=== PATIENT | male | born 1975 | race Caucasian/White ===

== ENCOUNTER 2020-03-27 09:14 | Emergency (ER) | payer BC, SELFPAY ==
[2020-03-27] VITALS (27 sets, daily range): BP systolic 132–152; BP diastolic 73–93; PULSE 72–96; RESP 14–29; TEMP 37; O2SAT 97–100
--- NOTE | 2020-03-27 09:15 | RT.EKG_ITS ---
APPROVED REPORT Exam: Resting ECG Patient Location: E HR:84 bpm ECG Measurements Heart Rate 84 AXIS NJ 224 P -1 QRSd 93 QRS 44 QT 341 T 27 QTc 404 <Conclusion> Sinus rhythm...normal P axis, V-rate 60- 99 Prolonged NJ interval...NJ >210, V-rate 50- 90 1st degree I have reviewed and interpreted ECG and agree with software generated interpretation. No acute ischem ic changes. Non-diagnostic EKG.
--- NOTE | 2020-03-27 09:30 | DI.RAD_ITS ---
EXAM: XR CHEST 2V PA LATERAL CLINICAL HISTORY: back/chest pain TECHNIQUE: 2D digital imaging was performed. COMPARISON: CR LEFT SHOULDER COMPLETE from 10/26/2017 FINDINGS: MEDIASTINUM: Normal. HEART: Normal. PULMONARY VASCULATURE: Normal. LUNGS: Patchy infiltrate in the right upper lobe. The left lung appears clear. PLEURAL SPACE: No pleural effusion or pneumothorax. BONE:Normal. OTHER FINDINGS:Normal. IMPRESSION: Right upper lobe pneumonia. DATA REPOSITORY: RADIATION DOSE DELIVERED:
--- NOTE | 2020-03-27 09:47 | W.ED.GENAD ---
Discharge Plan Disposition Patient Disposition: HOME Condition: Stable Discharge Details Chief Complaint: GenMedical Clinical Impression: Pneumonia, Hyponatremia, Hypokalemia Primary Care Provider: Jose Juan Jackson ED Provider: Rk Aviles Home Meds and New Rx's Prescriptions: New doxycycline hyclate 100 mg capsule 100 mg PO BID Qty: 10 RF: 0 Continued diclofenac-misoprostol [Arthrotec 75] 75-200 mg-mcg tablet,IR,delayed rel,biphasic 1 tab PO DAILY Qty: 30 RF: 3 allopurinol 100 mg tablet 200 mg PO DAILY Qty: 180 RF: 6 indomethacin 50 mg capsule 50 mg PO TID Qty: 20 RF: 3 esomeprazole magnesium [Nexium] 40 mg capsule,delayed release(DR/EC) 40 mg PO DAILY Qty: 90 RF: 3 Discharge Instructions Instructions: Hyponatremia (ED), Hypokalemia (ED), Pneumonia (ED) Additional Instructions: Doxycycline as directed. Be sure to stay adequately hydrated. As we discussed your sodium was low today, I do recommend eating some salty foods today and tomorrow to be sure this level returns to a normal range. In the meantime I do recommend that you consider and try to quit smoking and drinking alcohol. Please watch for new or worsening symptoms and return to the ER for any concerns. Your tickborne disease and COVID testing is pending, we discussed quarantining. I strongly recommend reaching out to your primary care provider later today or tomorrow for prompt outpatient reevaluation. Stand Alone Forms: POSITIVE COVID-19/TO BE TESTED Discharge Data Discharge Date/Time-TO BE ENTERED AT DEPARTURE: 03/27/20 12:41 Medical Decision Making 44-year-old gentleman who reports regular alcohol consumption, nearly 12 beers daily, current smoker, history of gout presents to the ER with multiple concerns. He does admit that he believes he has an alcohol problem but does not want any help for that, declines detox. Symptoms have been present for at least 1 month and include fatigue, body aches, joint aches, global headache, concerned of dehydration. He does report upper chest and back pain that he associates to be muscular. Clinically he appears well, nontoxic in no acute distress. Last drink was Wednesday night. Certainly could be a component of withdrawal here. Given his fatigue, aches, I do believe obtaining routine laboratory values assessing for potential infection, anemia, tickborne disease, etc. this is certainly reasonable. Given his chronic alcohol consumption very well may have an electrolyte abnormality. Although I do not believe his story is highly concerning of cardiac etiology, given he does complain of upper back and chest discomfort I do believe obtaining EKG and troponin is reasonable. Given my low suspicion for cardiac etiology, will not initiate aspirin therapy. Given the duration of his symptoms I believe a single troponin is sufficient for cardiac rule out. Laboratory values reveal a white blood cell count of 7.75 hemoglobin 15.4 hematocrit 42.3 platelet count 177. Sodium 129 potassium 3.3 creatinine 1.31 with a GFR of 58.91. LFTs unremarkable. TSH 1.57. Urine reveals 5-10 red blood cells but no signs of infection. Initial troponin is less than 0.05. Alcohol less than 3. Drug screen negative. Patient had 1 L IV fluid for potential dehydration and mild hyponatremia. Given 40 p.o. potassium. Chest x-ray reveals right upper lobe pneumonia. Will use doxycycline for antibiotic therapy as this should cover pneumonia as well as possible tickborne disease. First dose given here in the ER. Diagnosis of pneumonia certainly could explain his symptoms however his white count is normal, he shows no signs of hypoxia, denies cough or fever. Will obtain COVID test. Upon reevaluation patient does subjectively report feeling improvement after the IV fluid. We discussed his laboratory values and his imaging in length. Patient is quite comfortable discharge at this time however he does understand that both his COVID test and his tickborne panel are pending. We discussed quarantining and he is comfortable doing so. We also discussed that he was given a 10-day dose of doxycycline to treat his pneumonia however if his tickborne panel returns positive he likely needs to extend his doxycycline therapy. He was encouraged to watch for new or worsening symptoms and return to the ER for any concerns, otherwise contact his primary care provider today or tomorrow for prompt outpatient reevaluation. Medical Records Medical records reviewed: Yes I reviewed the patient's medical records. Imaging Data Radiologic Study: Attestation: I personally reviewed and interpreted this imaging study as follows: Imaging: X-Ray My impression: Right upper lobe pneumonia, confirmed by radiology Lab Data Lab results reviewed: Yes I reviewed the patient's lab results. Lab results narrative: Laboratory Tests Range/Units 03/27/20 03/27/20 03/27/20 09:41 09:41 09:55 WBC (4.4-10.8) 10^3/uL RBC (4.36-5.78) 10^6/uL Hgb (13.5-17.5) g/dL Hct (40.0-50.0) % MCV (80-95) fL MCH (27.0-33.0) pg MCHC (32.0-36.0) % RDW (11.8-14.1) % Plt Count (130-400) 10^3/uL MPV (8.0-11.0) fL Immature Gran % Neutrophils % Lymphocytes % Monocytes % Eosinophils % Basophils % Absolute Neutrophils (1.2-6.7) 10^3/uL Absolute Lymphocytes (1.2-3.4) 10^3/uL Absolute Monocytes (0.1-0.8) 10^3/uL Absolute Eosinophils (0.0-0.7) 10^3/uL Absolute Basophils (0.0-0.2) 10^3/uL PT (9.3-11.0) sec INR (0.9-1.1) APTT (21.0-31.4) sec Sodium (136-145) mmol/L Potassium (3.5-5.1) mmol/L Chloride (98-107) mmol/L Carbon Dioxide (21.0-32.0) mmol/L Anion Gap (3-11) mmol/L BUN (7-18) mg/dL Creatinine (0.70-1.30) mg/dL Estimated GFR/1.73 m2 (mL/min/1.73m2) Glucose (74-106) mg/dL Calcium (8.5-10.1) mg/dL Magnesium (1.8-2.4) mg/dL Total Bilirubin (0.2-1.0) mg/dL AST (15-37) U/L ALT (16-63) U/L Alkaline Phosphatase (46-116) U/L Troponin I (<0.06) ng/mL Total Protein (6.4-8.2) g/dL Albumin (3.4-5.0) g/dL TSH (0.36-3.74) uIU/mL 1.57 Urine Color (Yellow) Yellow Urine Clarity (Clear) Clear Urine pH (5-8) 6.0 Ur Specific [place] (1.005-1.025) >= 1.030 H Urine Protein (Negative) mg/dL 100 H Urine Ketones (Negative) mg/dL Negative Urine Blood (Negative) Moderate H Urine Nitrite (Negative) Negative Urine Bilirubin (Negative) Small H Urine Urobilinogen (Up TO 0.2) EU/dL 2.0 H Ur Leukocyte Esterase (Negative) Negative Urine RBC (0-2) HPF 5-10 H Urine WBC (0-5) HPF 0-2 Ur Epithelial Cells (Negative) HPF Few Urine Crystals (Negative) HPF Moderate amorphous Urine Bacteria (Negative) HPF Negative Urine Casts (Negative) LPF Negative Urine Mucus (Negative) Moderate Ur Culture Indicated? No Urine Glucose (Negative) mg/dL Negative Urine Opiates Screen (Negative) Negative Urine Methadone Screen (Negative) Negative Ur Barbiturates Screen (Negative) Negative Ur Tricyclics Screen (Negative) Negative Ur Amphetamines Screen (Negative) Negative U Benzodiazepines Scrn (Negative) Negative Urine Cocaine Screen (Negative) Negative Ur THC Screen (Negative) Negative Ethyl Alcohol (<3) mg/dL < 3.0 COVID-19 PCR Nasopharyn COVID-19 PCR Ref Test Perform Site Range/Units 03/27/20 03/27/20 03/27/20 09:55 09:55 09:55 WBC (4.4-10.8) 10^3/uL 7.75 RBC (4.36-5.78) 10^6/uL 4.58 Hgb (13.5-17.5) g/dL 15.4 Hct (40.0-50.0) % 42.3 MCV (80-95) fL 92.4 MCH (27.0-33.0) pg 33.6 H MCHC (32.0-36.0) % 36.4 H RDW (11.8-14.1) % 11.9 Plt Count (130-400) 10^3/uL 177 MPV (8.0-11.0) fL 10.6 Immature Gran % 0.3 Neutrophils % 65.9 Lymphocytes % 17.5 Monocytes % 15.9 Eosinophils % 0.1 Basophils % 0.3 Absolute Neutrophils (1.2-6.7) 10^3/uL 5.11 Absolute Lymphocytes (1.2-3.4) 10^3/uL 1.36 Absolute Monocytes (0.1-0.8) 10^3/uL 1.23 H Absolute Eosinophils (0.0-0.7) 10^3/uL 0.01 Absolute Basophils (0.0-0.2) 10^3/uL 0.02 PT (9.3-11.0) sec 10.6 INR (0.9-1.1) 1.1 APTT (21.0-31.4) sec 30.1 Sodium (136-145) mmol/L 129 L Potassium (3.5-5.1) mmol/L 3.3 L Chloride (98-107) mmol/L 92 L Carbon Dioxide (21.0-32.0) mmol/L 27.5 Anion Gap (3-11) mmol/L 9.5 BUN (7-18) mg/dL 12 Creatinine (0.70-1.30) mg/dL 1.31 H Estimated GFR/1.73 m2 (mL/min/1.73m2) 58.91 Glucose (74-106) mg/dL 118 H Calcium (8.5-10.1) mg/dL 8.5 Magnesium (1.8-2.4) mg/dL 1.8 Total Bilirubin (0.2-1.0) mg/dL 0.7 AST (15-37) U/L 33 ALT (16-63) U/L 43 Alkaline Phosphatase (46-116) U/L 67 Troponin I (<0.06) ng/mL < 0.05 Total Protein (6.4-8.2) g/dL 7.8 Albumin (3.4-5.0) g/dL 3.5 TSH (0.36-3.74) uIU/mL Urine Color (Yellow) Urine Clarity (Clear) Urine pH (5-8) Ur Specific [place] (1.005-1.025) Urine Protein (Negative) mg/dL Urine Ketones (Negative) mg/dL Urine Blood (Negative) Urine Nitrite (Negative) Urine Bilirubin (Negative) Urine Urobilinogen (Up TO 0.2) EU/dL Ur Leukocyte Esterase (Negative) Urine RBC (0-2) HPF Urine WBC (0-5) HPF Ur Epithelial Cells (Negative) HPF Urine Crystals (Negative) HPF Urine Bacteria (Negative) HPF Urine Casts (Negative) LPF Urine Mucus (Negative) Ur Culture Indicated? Urine Glucose (Negative) mg/dL Urine Opiates Screen (Negative) Urine Methadone Screen (Negative) Ur Barbiturates Screen (Negative) Ur Tricyclics Screen (Negative) Ur Amphetamines Screen (Negative) U Benzodiazepines Scrn (Negative) Urine Cocaine Screen (Negative) Ur THC Screen (Negative) Ethyl Alcohol (<3) mg/dL COVID-19 PCR Nasopharyn COVID-19 PCR Ref Test Perform Site Range/Units 03/27/20 10:56 WBC (4.4-10.8) 10^3/uL RBC (4.36-5.78) 10^6/uL Hgb (13.5-17.5) g/dL Hct (40.0-50.0) % MCV (80-95) fL MCH (27.0-33.0) pg MCHC (32.0-36.0) % RDW (11.8-14.1) % Plt Count (130-400) 10^3/uL MPV (8.0-11.0) fL Immature Gran % Neutrophils % Lymphocytes % Monocytes % Eosinophils % Basophils % Absolute Neutrophils (1.2-6.7) 10^3/uL Absolute Lymphocytes (1.2-3.4) 10^3/uL Absolute Monocytes (0.1-0.8) 10^3/uL Absolute Eosinophils (0.0-0.7) 10^3/uL Absolute Basophils (0.0-0.2) 10^3/uL PT (9.3-11.0) sec INR (0.9-1.1) APTT (21.0-31.4) sec Sodium (136-145) mmol/L Potassium (3.5-5.1) mmol/L Chloride (98-107) mmol/L Carbon Dioxide (21.0-32.0) mmol/L Anion Gap (3-11) mmol/L BUN (7-18) mg/dL Creatinine (0.70-1.30) mg/dL Estimated GFR/1.73 m2 (mL/min/1.73m2) Glucose (74-106) mg/dL Calcium (8.5-10.1) mg/dL Magnesium (1.8-2.4) mg/dL Total Bilirubin (0.2-1.0) mg/dL AST (15-37) U/L ALT (16-63) U/L Alkaline Phosphatase (46-116) U/L Troponin I (<0.06) ng/mL Total Protein (6.4-8.2) g/dL Albumin (3.4-5.0) g/dL TSH (0.36-3.74) uIU/mL Urine Color (Yellow) Urine Clarity (Clear) Urine pH (5-8) Ur Specific [place] (1.005-1.025) Urine Protein (Negative) mg/dL Urine Ketones (Negative) mg/dL Urine Blood (Negative) Urine Nitrite (Negative) Urine Bilirubin (Negative) Urine Urobilinogen (Up TO 0.2) EU/dL Ur Leukocyte Esterase (Negative) Urine RBC (0-2) HPF Urine WBC (0-5) HPF Ur Epithelial Cells (Negative) HPF Urine Crystals (Negative) HPF Urine Bacteria (Negative) HPF Urine Casts (Negative) LPF Urine Mucus (Negative) Ur Culture Indicated? Urine Glucose (Negative) mg/dL Urine Opiates Screen (Negative) Urine Methadone Screen (Negative) Ur Barbiturates Screen (Negative) Ur Tricyclics Screen (Negative) Ur Amphetamines Screen (Negative) U Benzodiazepines Scrn (Negative) Urine Cocaine Screen (Negative) Ur THC Screen (Negative) Ethyl Alcohol (<3) mg/dL COVID-19 PCR Cancelled Nasopharyn COVID-19 PCR Cancelled Ref Test Perform Site Cancelled ECG Data Attestation: I personally reviewed and interpreted this ECG (s) as follows: Interpretation: Reviewed with Dr. Trinidad, please see her official interpretation. Sinus rhythm, ventricular rate of 84. Prolonged MD interval. No STEMI HPI General Mode of arrival: ambulatory. Date/Time Provider Initiated Documentation: 03/27/20 09:21. Limitations to Documentation: no limitations. Information obtained by: patient. HPI Narrative: This is a 44-year-old gentleman with a past medical history that includes chronic alcohol consumption, roughly 12 beers daily, gout, GERD, current smoker, presenting to the ER with multiple complaints. He reports a month-long history of generalized fatigue which has now progressed into a mild global headache, body aches, upper and chest discomfort that he describes as muscular. He denies any recent illness or trauma. He tells me that his last drink was late Wednesday night. He has not taken any [id number] medications for his symptoms nor has he contacted his primary care provider over the last month. He is concerned that he is dehydrated. Combination of his alcohol consumption, being outside, and poor p.o. intake made him evaluate his symptoms online and he believes he needs IV fluids. He has had no nausea or vomiting, no difficulty with p.o. fluids. He denies any change in his urinary or bowel output. 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 Even when I specifically asked him about this he denied those symptoms. He is unaware of any possible insect or tick bites. Denies rash. Denies pain within his joints. Related Data Home Medications Medication Instructions Recorded Confirmed diclofenac 75 mg-misoprostol 200 1 tab PO DAILY #30 tab 11/23/18 01/04/19 mcg tablet,immediate,delayed release allopurinol 100 mg tablet 200 mg PO DAILY #180 tab-cap 08/29/19 03/27/20 indomethacin 50 mg capsule 50 mg PO TID #20 tab-cap 10/20/19 03/27/20 esomeprazole magnesium 40 mg 40 mg PO DAILY #90 tab-cap 11/30/19 03/27/20 capsule,delayed release doxycycline hyclate 100 mg PO BID #10 cap 03/27/20 Previous Rx's Medication Instructions Recorded diclofenac 75 mg-misoprostol 200 1 tab PO DAILY #30 tab 11/23/18 mcg tablet,immediate,delayed release allopurinol 100 mg tablet 200 mg PO DAILY #180 tab-cap 08/29/19 indomethacin 50 mg capsule 50 mg PO TID #20 tab-cap 10/20/19 esomeprazole magnesium 40 mg 40 mg PO DAILY #90 tab-cap 11/30/19 capsule,delayed release doxycycline hyclate 100 mg PO BID #10 cap 03/27/20 Allergies Allergy/AdvReac Type Severity Reaction Status Date / Time No Known Allergies Allergy Verified 03/27/20 09:26 General Stated Complaint: GenMedical KAILEY: 2 Review of Systems Constitutional Constitutional: Reports fatigue, Denies fever(s) and Denies headache(s) Eyes Eyes: Denies change in vision ENT Ears, Nose, Mouth, and Throat: Denies headache(s), Denies neck pain and Denies sore throat Cardiovascular Cardiovascular: Reports chest pain (Described as muscular) and Denies dyspnea Respiratory Respiratory: Denies cough, Denies dyspnea and Denies wheezing Gastrointestinal Gastrointestinal: Denies abdominal pain, Denies nausea and Denies vomiting Musculoskeletal Musculoskeletal: Reports back pain, Reports myalgias, Denies arthralgias, Denies neck pain, Denies numbness and Denies tingling Integumentary/Breasts Skin/Breast: Denies rash Neurologic Neurologic: Denies headache(s), Denies numbness and Denies tingling Endocrine Endocrine: Reports fatigue Allergic/Immunologic Allergic/Immunologic: Denies wheezing PFSH Medical History Contact dermatitis (Acute) Gout (Acute) Heavy alcohol consumption (Acute 07/29/16) Espinoza's neuroma of both feet (Acute) Smoker (Acute) Social History Smoking/Tobacco Use Status: Current every day Tobacco Type: cigarettes Alcohol Intake: current Alcohol Intake frequency: 3 or more drinks per day Alcohol type: beer Drug use: Never Do you feel safe at home: Yes Do you feel safe in your relationship?: Yes Exam Const General: cooperative, healthy appearing, comfortable and no acute distress Orientation: alert, awake and oriented x3 HENMT Head: normal to inspection, normocephalic and atraumatic Ears: external ears normal, TM's normal bilaterally and EAC's normal Face and sinus: normal facial exam Mouth: moist mucous membranes Throat: posterior oropharynx normal Eyes General: appearance normal, both eyes and all related structures Alignment and Position: alignment normal Periorbital: periorbital findings normal Eyelids: eyelids normal Conjunctivae: conjunctivae normal Sclera: sclerae normal Cornea: corneas normal Pupils: PERRL EOM: EOM intact bilaterally Direct ophthalmoscopy: normal light reflex Neck Neck: normal visual inspection, full ROM, no lymphadenopathy, no meningeal signs, trachea midline, supple and nontender Chest Chest: normal inspection of the chest and normal palpation of entire chest wall Resp Effort & Inspection: normal respiratory effort and able to speak in complete sentences Auscultation: diminished lung sounds bilaterally in the lower lung sandhu and wheezes upper bilaterally (Mild, scattered, cleared with coughing) Cardio Rate: tachycardic (Tachycardia 104) Rhythm: regular rhythm GI Inspection: normal to inspection Palpation: soft, not firm, no guarding and nontender Auscultation: normal bowel sounds Back/Spine/Pelvis Back: no CVA tenderness and back tenderness (Diffuse mild, no midline point tenderness or ecchymosis) Skin General skin exam: no rashes or lesions noted Neuro General: patient alert, patient awake, patient oriented x3, moves all extremities and no focal motor deficits Cranial Nerves: CN's II-XI intact bilaterally Cognition: normal cognition Speech: speech normal Gait: normal gait Motor: muscle tone normal throughout and strength 5/5 throughout Sensory Exam: no sensory deficits noted Extrem General: normal to inspection, full ROM, no pedal edema and no calf tenderness Psych Appearance: grossly normal Mental Status: mental status grossly normal Course Vital Signs Vital signs: Vital Signs Temperature 37 C 03/27/20 09:20 Pulse 96 H 03/27/20 09:20 Respiratory Rate 15 03/27/20 09:20 Blood Pressure 145/93 H 03/27/20 09:20 Pulse Oximetry 97 03/27/20 09:20 Temperature 37 C 03/27/20 09:20 Temperature Source Temporal Artery Scan 03/27/20 09:20 Pulse 96 H 03/27/20 09:20 Respiratory Rate 14 03/27/20 09:34 Respiratory Effort Non-Labored 03/27/20 09:34 Respiratory Depth Normal 03/27/20 09:34 Respiratory Pattern Normal 03/27/20 09:34 Blood Pressure 145/93 H 03/27/20 09:20 Blood Pressure Position Sitting 03/27/20 09:20 Pulse Oximetry 97 03/27/20 09:20 Oxygen Delivery Method Room Air 03/27/20 09:20 Oxygen Flow Rate 0 03/27/20 09:20 Pain Level 8 03/27/20 09:20 Comment 03/27/20 09:20
[2020-03-27 10:03] LABS: Bilirubin Small (Negative); Blood Moderate (Negative); Clarity Clear (Clear); Glucose Negative (Negative); Ketones Negative (Negative); Leukocyte Esterase Negative (Negative); Nitrite Negative (Negative); Specific Gravity >= 1.030 (1.005-1.025)
[2020-03-27] MEDS: Normal Saline 1,000 ML 1000 ML IV (10:11)
[2020-03-27 10:26] LABS: INR 1.1 (0.9-1.1); PTT Activated 30.1 sec (21.0-31.4); Prothrombin Time 10.6 sec (9.3-11.0)
[2020-03-27 10:29] LABS: ALT 43 U/L (16-63); AST 33 U/L (15-37); Albumin 3.5 g/dL (3.4-5.0); Alkaline Phosphatase 67 U/L (46-116); Anion Gap 9.5 mmol/L (3-11); BUN 12 mg/dL (7-18); Bilirubin, Total 0.7 mg/dL (0.2-1.0); CO2 27.5 mmol/L (21.0-32.0); CREATININE 1.31 mg/dL (0.70-1.30); Calcium 8.5 mg/dL (8.5-10.1); Chloride 92 mmol/L (98-107); Estimated GFR 58.91 (mL/min/1.73m2); Glucose 118 mg/dL (74-106); Magnesium 1.8 mg/dL (1.8-2.4); Potassium 3.3 mmol/L (3.5-5.1); Sodium 129 mmol/L (136-145); Total Protein 7.8 g/dL (6.4-8.2)
[2020-03-27 10:32] LABS: *AMPHETAMINES SCREEN URINE Negative (Negative); *BARBITURATES SCREEN URINE Negative (Negative); *BENZODIAZEPINES SCREEN URINE Negative (Negative); Cannabinoids THC Negative (Negative); Cocaine Screen,Urine Negative (Negative); METHADONE URINE SCREEN Negative (Negative); OPIATES URINE SCREEN Negative (Negative)
[2020-03-27 10:32] LABS: TSH (W/Ref FT4) 1.57 uIU/mL (0.36-3.74)
[2020-03-27 10:33] LABS: Bacteria Negative HPF (Negative); Crystals Moderate Amorphous HPF (Negative); Epithelial Cells Few HPF (Negative); Tricyclic Antidepressants Negative (Negative); WBC 0-2 HPF (0-5)
[2020-03-27 10:34] LABS: C & S Indicated? No; Casts Negative LPF (Negative); Mucus Moderate (Negative)
[2020-03-27 10:34] LABS: Troponin I < 0.05 ng/mL (<0.06)
[2020-03-27 10:37] LABS: ETHANOL BLOOD < 3.0 mg/dL (<3)
[2020-03-27 10:59] LABS: Abs Immature Grans 0.02 10^3/uL (0.0-0.06); Absolute Basophil Count 0.02 10^3/uL (0.0-0.2); Absolute Eosinophil Count 0.01 10^3/uL (0.0-0.7); Absolute Lymphocyte Count 1.36 10^3/uL (1.2-3.4); Absolute Monocyte Count 1.23 10^3/uL (0.1-0.8); Absolute Neutrophil Count 5.11 10^3/uL (1.2-6.7); Basophils % 0.3; Eosinophils % 0.1; HCT 42.3 % (40.0-50.0); HGB 15.4 g/dL (13.5-17.5); Immature Grans % 0.3; Lymphocytes % 17.5; MCH 33.6 pg (27.0-33.0); MCHC 36.4 % (32.0-36.0); MCV 92.4 fL (80-95); MPV 10.6 fL (8.0-11.0); Monocytes % 15.9; Neutrophils % 65.9; Platelet Count 177 10^3/uL (130-400); RBC 4.58 10^6/uL (4.36-5.78); RDW 11.9 % (11.8-14.1); RDW-SD 40.2 fL; WBC 7.75 10^3/uL (4.4-10.8)
[2020-03-27] MEDS: Doxycycline Hyclate 100 MG CAP PO (11:51)
[2020-03-27] MEDS: Potassium Chloride 20 MEQ TABCR 40 MEQ PO (12:23)
[2020-03-28 09:46] LABS: Lyme Ab w Rflx to Lyme Confirm Negative (Negative)
[2020-03-29 08:46] LABS: SARS-CoV-2 RNA Undetected (Undetected); SARS-CoV-2 Specimen Source Nasopharynx
--- NOTE | 2020-03-29 13:16 | NUR.NOTE ---
Nursing Note: nurse has called and left message to have patient call back for covid results.
[2020-03-29 23:37] LABS: Anaplasma phagocytophilum Negative (Negative); B. miyamotoi PCR Negative (Negative); Babesia divergens/MO-1 Negative (Negative); Babesia duncani Negative (Negative); Babesia microti Negative (Negative); Ehrlichia chaffeensis Negative (Negative); Ehrlichia ewingii/canis Negative (Negative); Ehrlichia muris eauclairensis Negative (Negative)
== END 2020-03-27 12:41 | disposition home or self-care (01) ==
PROVIDERS: Emergency Provider Physician Assistant; PCP Emergency Medicine
DX: J18.9 Pneumonia, unspecified organism (principal); E87.1 Hypo-osmolality and hyponatremia; E87.6 Hypokalemia; M79.10 Myalgia, unspecified site; Z11.59 Encounter for screening for other viral diseases; F17.210 Nicotine dependence, cigarettes, uncomplicated
CPT/HCPCS: 36415; 80053; 80307; 87798; 93005; 96360; 99285; U0003; 71046; 80320; 81003; 81015; 83735; 84443; 84484; 85025; 85610; 85730; 86618; 93010

== ENCOUNTER 2022-04-15 02:45 | Outpatient (CLI) | payer BC, SELFPAY ==
[2022-04-15 18:44] LABS: CREATININE 1.2 mg/dL (0.70-1.30)
[2022-04-15 19:03] LABS: Calculated LDL 110 mg/dL (<100); Cholesterol 186 mg/dL (<200); HDL Cholesterol 41 mg/dL (40-60); Triglyceride 179 mg/dL (<150)
== END 2022-04-15 02:46 | disposition home or self-care (01) ==
LOC: LBO 02:45
PROVIDERS: PCP Nurse Practitioner Family; Visit Provider Nurse Practitioner Family
DX: F10.10 Alcohol abuse, uncomplicated (principal); Z13.220 Encounter for screening for lipoid disorders; Z00.00 Encounter for general adult medical examination without abnormal findings
CPT/HCPCS: 36415; 80061; 82565

== ENCOUNTER 2022-05-18 07:40 | Day surgery (SDC) | payer BC, SELFPAY ==
--- NOTE | 2022-05-18 07:00 | COLE_ITS ---
Colonoscopy Report Date of procedure: 05/18/22 Pre-op diagnosis general: colon cancer screening Post-op diagnosis procedure note: same Procedure: Colonoscopy Surgeon: Risa Gutierrez Anesthesia Type: General:No Airway Estimated blood loss (mL): 0 Pathology: none sent Complications: None Disposition: same day Indications: The patient? is a pleasant? 46-year-old male who is here to discuss another screening colonoscopy. ? He denies any changes in bowel habits, melena, hem atochezia, unintentional weight loss or family history of colon cancer.? The procedure and risks were discussed.? The prep was reviewed in detail.? Risks, benefits and complications have been reviewed. Complications include but are not limited to bleeding, pain, perforation, missed small lesion/polyp, sore throat, aspiration and adverse reaction to the medications. Questions were entertained and answered to their satisfaction and they wished to proceed. No guarantees were given or implied. Prep: Miralax/Dulcolax Procedure Start Time: 09:15 Procedure End Time: 09:36 Retraction Time: 7 minutes Findings: normal colon Procedure Description: After informed consent was obtained the patient was taken to the procedure room and placed in a left decubitous position. Monitors were applied and a time out was done. The patients name, date of , procedure, allergies to medications and metal in their body was reviewed. The patient was then sedated. Once sedated and comfortable a rectal exam was done. External exam was normal. Internal exam revealed a normal sphincter tone and no palpable masses. The scope was then introduced and retro-flexed. no internal hemorrhoids, polyps or masses were identified on retro-flexion. The scope was then advanced to the cecum without difficulty. The ileocecal vlave and appendiceal orifice were identified. The prep was adequate. The scope was then slowly retracted over 7 minutes back into the rectum. There were no polyps and no diverticulosis noted. The scope was removed and the patient was woken up and taken back to Same day surgery in stable condition. The patient tolerated the procedure well and there were no immediate complications. Follow up: The patient should follow up in 10 years unless they develop changes in bowel habits or other new gastrointestinal complaints.
--- NOTE | 2022-05-18 07:01 | W.PM.DSUDISC ---
Discharge Plan Disposition Patient Disposition: HOME Condition: Good Discharge Details Reason For Visit: colonoscopy Attending Provider: Risa Gutierrez Primary Care Provider: Hieu Ca Home Meds and New Rx's Prescriptions: Continued Enbrel 50 mg/mL (1 mL) syringe 50 mg subcut QWEEK allopurinol 100 mg tablet 200 mg PO DAILY Qty: 180 6RF esomeprazole magnesium 40 mg capsule,delayed release(DR/EC) See Rx Instructions .ROUTE .COMPLEX Qty: 90 0RF Dose Instruction: TAKE 1 CAPSULE BY MOUTH DAILY Rx Instructions: TAKE 1 CAPSULE BY MOUTH DAILY Discontinued bisacodyl [Dulcolax (bisacodyl)] 5 mg tablet,delayed release (DR/EC) 5 mg PO ONCE Qty: 4 0RF Rx Instructions: Take according to provider's instructions for colonoscopy prep. polyethylene glycol 3350 17 gram/dose powder 17 g PO ONCE Qty: 238 0RF Rx Instructions: To be taken as directed by prescriber's office for colonoscopy prep. Discharge Instructions Additional Instructions: Findings:Normal Follow up: 10 years Please call if you develop: fevers >101.5 Nausea or Vomiting Abdominal pain that is not transient Rectal bleeding that is more then a tbsp A hard abdomen and inability to pass gas DAY SURGERY UNIT POST ENDOSCOPY INSTRUCTIONS Instructions for everyone who is given Anesthesia: For your safety, please do the following for the next 24 Hours: a. Do not drive or operate dangerous equipment b. Do not drink alcohol beverages or use any recreational drugs for the first 24 hours or while taking pain medications. The medications in your body may have a reaction that can be dangerous. c. Do not make any important decisions or sign any important papers 1. Generally there are no restrictions on your activity after a day or so has gone by, but you may feel a bit fatigued for a few days. 2. After you arrive home you may have a light meal and return to a normal diet as you can tolerate it without feeling sick to your stomach. 3. After surgery, you may feel pain or discomfort. This should be only transient, but if it persists please contact your doctor. 4. If there are any questions regarding the findings of your procedure, please feel free to contact your doctor. 6. If you are unable to contact your doctor with a problem, contact the hospital at [phone]. 7. Continue all your regular medications unless directed otherwise. I understand the above instructions and have no questions. Signature of Patient or Responsible Adult Escort Date/Time Name of Responsible Adult Escort Signature of Nurse Date/Time Activity:: Activity as Tolerated Diet:: As Tolerated Discharge Orders Discharge Orders: Discharge Order (Routine); Ordered 05/18/22 Ordered By: Risa Gutierrez
[2022-05-18 07:53] VITALS: BP 108/89; PULSE 65; RESP 16; TEMP 36.2; O2SAT 99
[2022-05-18] MEDS: Lactated Ringers 1,000 ML 80 ML IV (08:18)
--- NOTE | 2022-05-18 08:59 | W.ANESPRE ---
General Info Date of Service Date Performed: 05/18/22 Height: 6 ft Weight: 94 kg Body Mass Index (BMI): 28.0 Surgical Procedure: Operation Date: 05/18/22 09:35 Proposed Procedure Side Surgeon jasmeet Gutierrez MD Meds Allergies and Home Medications Allergies Allergy/AdvReac Type Severity Reaction Status Date / Time No Known Allergies Allergy Verified 05/18/22 08:31 Home Medication Medication Instructions Recorded allopurinol 100 mg tablet 200 mg PO DAILY #180 tab-caps 08/29/19 esomeprazole magnesium 40 mg See Rx Instructions .Route 02/20/22 capsule,delayed release .COMPLEX #90 caps etanercept 50 mg/mL (1 mL) 50 mg subcut QWEEK 04/27/22 subcutaneous syringe (Enbrel) bisacodyl 5 mg tablet,delayed 5 mg PO ONCE #4 tabs 05/05/22 release (Dulcolax (bisacodyl)) polyethylene glycol 3350 17 17 g PO ONCE #238 grams 05/05/22 gram/dose oral powder Current Visit Medications: Current Medications Generic Name Dose Route Start Last Admin Trade Name Freq PRN Reason Stop Dose Admin Hyoscyamine Sulfate 0.125 mg 05/18/22 07:02 Hyoscyamine 0.125 Mg Sl/Oral/Chew SL DIRECTED PRN Ringer's Solution 1,000 mls @ 80 mls/hr 05/18/22 06:00 05/18/22 08:18 IV 06/14/22 23:59 80 mls/hr INFUSION ELEUTERIO Administration IV Miscellaneous Supplies 1 each 05/18/22 06:00 Iv Access IV 06/14/22 23:59 DIRECTED ELEUTERIO Ondansetron HCl 4 mg 05/18/22 07:02 Ondansetron 4 Mg/2 Ml Vial IVP Q4H PRN PRN Nausea / Vomiting Sodium Chloride 0 ml 05/18/22 06:00 Normal Saline Flush 10 Ml Syr IV 06/14/22 23:59 PRN PRN Sodium Chloride 0 ml 05/18/22 06:00 Normal Saline 10 Ml Vial IJ 06/14/22 23:59 DIRECTED PRN Sterile Water 0 ml 05/18/22 06:00 Water,Injection,Sterile 10 Ml Vial IJ 06/14/22 23:59 DIRECTED PRN PFSH Active Problems Active Problems: Problem Status Onset Code Psoriatic arthritis L40.50 Screening for colon cancer Z12.11 Gout M10.9 Heavy alcohol consumption 07/29/16 Z78.9 Smoker F17.200 Medical History Medical History Medial epicondylitis, left elbow Tobacco Smoking/Tobacco Use Status: Current every day Tobacco Type: cigarettes Smoking cigarettes per day: 10 Years smoked: 20 Alcohol Alcohol Intake: current Alcohol intake frequency: 3 or more drinks per day Alcohol type: beer Substance Use Substance use: Never Substance use type: does not use Details: last alcohol was Wednesday Vital Signs and Lab Results Vital Signs Most Recent Vital Signs in EMR: Most Recent Vital Signs Temp Pulse Resp BP Pulse Ox 36.2 C L 65 16 108/89 99 05/18/22 07:53 05/18/22 07:53 05/18/22 07:53 05/18/22 07:53 05/18/22 07:53 Lab Results Blood Type / Crossmatch: No Data to Display Complete Blood Count: No Data to Display Complete Metabolic Panel: No Data to Display Liver Function Panel: No Data to Display Coagulation Panel: No Data to Display Cardiac Panel: No Data to Display Arterial Blood Gas: No Data to Display Venous Blood Gas: No Data to Display Pancreas Panel: No Data to Display Thyroid Panel: No Data to Display Infectious Disease: No Data to Display Blood Cultures: No Data to Display Toxicology Panel: No Data to Display Imaging and Studies Imaging and Studies Study information below may be from another EMR and interpreted by another provider. Please see original notes in EMR for more complete details. EKG Summary: 03/27/2020: <Conclusion> Sinus rhythm...normal P axis, V-rate 60- 99 Prolonged KY interval...KY >210, V-rate 50- 90 1st degree I have reviewed and interpreted ECG and agree with software generated interpretation. No acute ischemic changes. Non-diagnostic EKG. Anesthesia Assessment and Plan Anesthesia History Personal History: No History of Anesthesia Complications Family History: No Family History of Anesthesia Complications Exercise Tolerance Exercise Tolerance: Metabolic Equivalents>4 Pertinent Negatives Pertinent Negatives: No Major Cardiovascular Symptoms or Complaints, No Major Pulmonary Symptoms or Complaints and Other (GERD well controlled) Cardiac & Pulmonary Exam Cardiac Exam: Normal S1/S2 Heart Sounds Pulmonary Exam: Clear Bilateral Breath Sounds Implantable Cardiac Device Does patient have a Pacemaker or an ICD?: No Airway Exam Known Difficult Airway: No Mallampati Class: 3 Mouth Opening: Normal (> 3cm) Thyromental Distance: Greater than 3 cm Facial Hair: Full Swain Neck Range of Motion: Full ROM Neck Circumference: Normal Teeth Condition: Normal Dentition ASA Classification ASA Score: ASA 2 Emergency Case?: No NPO Status NPO Status: NPO Clears >2 hours, Solids >8 hours Anesthesia Plan Resuscitation Status: Full Code Anesthesia Technique: General Anesthesia Airway Planned: Natural Airway Monitors Used: Standard Monitors
[2022-05-18 09:02] VITALS: BMI 28.0
[2022-05-18 09:46] VITALS: BP 110/83; PULSE 69; RESP 16; TEMP 35.9; O2SAT 97
--- NOTE | 2022-05-18 09:57 | W.ANESPOSTOP ---
Postoperative Evaluation Date, Time and Location Date Performed: 05/18/22 Time Performed: 09:56 Patient Location: Day Surgery Unit Vital Signs Most Recent Imported Vital Signs: Most Recent Vital Signs Temp Pulse Resp BP Pulse Ox 35.9 C L 69 16 110/83 97 05/18/22 09:46 05/18/22 09:46 05/18/22 09:46 05/18/22 09:46 05/18/22 09:46 Pain Score Most Recent Pain Score: Most Recent Pain Score Pain Level 0 05/18/22 09:46 Assessment Mental Status: Awake (Alert & Oriented to Patient Baseline) Airway and Respiratory Function: Patent airway with normal (patient baseline) respiratory exam Cardiovascular Function: Hemodynamically Stable Hydration Status: Adequately Hydrated Nausea & Vomiting: No Nausea or Vomiting Pain: Pt. Denies Any Pain Peripheral Nerve Block: Patient did not receive a nerve block
[2022-05-18 10:24] VITALS: BP 138/82; PULSE 46; RESP 16; TEMP 36.3; O2SAT 100
== END 2022-05-18 10:58 | disposition home or self-care (01) ==
LOC: SUR 07:41
PROVIDERS: PCP Nurse Practitioner Family; Visit Provider Surgery
PROC: 0DJD8ZZ Inspection of Lower Intestinal Tract, Via Natural or Artificial Opening Endoscopic (ICD-10-PCS; CPT 45378; principal; 2022-05-18 09:30)
DX: Z12.11 Encounter for screening for malignant neoplasm of colon (principal); F17.210 Nicotine dependence, cigarettes, uncomplicated
CPT/HCPCS: 45378; J2704

== ENCOUNTER → 2023-09-27 02:24 | Outpatient (CLI) | payer BC, SELFPAY ==
--- NOTE | 2023-09-27 08:36 | DI.RAD_ITS ---
Exam(s) XR SHOULDER LT COMPLETE 2+V EXAM: XR SHOULDER LT COMPLETE 2+V CLINICAL HISTORY: FELL,? FX,m25.512. TECHNIQUE: 2D digital imaging was performed of the left shoulder. Five images were obtained. AP, G rashey, Y-view and axillary views were obtained. COMPARISON: No exams were available for comparison FINDINGS: BONES: No acute fracture is present. No bony destructive lesion is seen. JOINTS: No dislocation present. The acromioclavicular and glenohumeral joints are well maintained. SOFT TISSUE: The visualized lungs are clear. IMPRESSION: No acute fracture or dislocation. DATA REPOSITORY: RADIATION DOSE DELIVERED:
== END ==
PROVIDERS: PCP Nurse Practitioner Family; Visit Provider Internal Medicine Rheumatology
DX: M25.512 Pain in left shoulder (principal)
CPT/HCPCS: 73030

== ENCOUNTER 2023-09-27 09:22 | Outpatient (CLI) | payer BC, SELFPAY ==
[2023-09-27 08:55] LABS: Abs Immature Grans 0.02 10^3/uL (0.0-0.06); Absolute Basophil Count 0.07 10^3/uL (0.0-0.2); Absolute Eosinophil Count 0.42 10^3/uL (0.0-0.7); Absolute Lymphocyte Count 2.94 10^3/uL (1.2-3.4); Absolute Monocyte Count 0.53 10^3/uL (0.1-0.8); Absolute Neutrophil Count 2.52 10^3/uL (1.2-6.7); Basophils % 1.1; Eosinophils % 6.5; HCT 43.7 % (40.0-50.0); HGB 15.8 g/dL (13.5-17.5); Immature Grans % 0.3; Lymphocytes % 45.2; MCH 33.3 pg (27.0-33.0); MCHC 36.2 % (32.0-36.0); MCV 92 fL (80-95); Monocytes % 8.2; Neutrophils % 38.7; Platelet Count 250 10^3/uL (130-400); RBC 4.75 10^6/uL (4.36-5.78); RDW 12.4 % (11.8-14.1); RDW-SD 42.2 fL
[2023-09-27 09:56] LABS: ALT 48 U/L (16-63); AST 27 U/L (15-37); Alkaline Phosphatase 68 U/L (46-116); Anion Gap 8.4 mmol/L (3-11); BUN 13 mg/dL (7-18); Bilirubin, Total 0.5 mg/dL (0.2-1.0); CO2 28.6 mmol/L (21.0-32.0); CREATININE 1.1 mg/dL (0.70-1.30); Calcium 9.3 mg/dL (8.5-10.1); Chloride 102 mmol/L (98-107); Estimated GFR 81.78 (mL/min/1.73m2); Glucose 93 mg/dL (74-106); Potassium 4.4 mmol/L (3.5-5.1); Sodium 139 mmol/L (136-145); Total Protein 7.6 g/dL (6.4-8.2)
[2023-09-27 10:21] LABS: Uric Acid 5.6 mg/dL (3.5-7.2)
== END 2023-09-27 09:23 | disposition home or self-care (01) ==
LOC: LBO 09:22
PROVIDERS: PCP Nurse Practitioner Family; Visit Provider Internal Medicine Rheumatology
DX: M25.512 Pain in left shoulder (principal); M10.9 Gout, unspecified; L40.50 Arthropathic psoriasis, unspecified
CPT/HCPCS: 36415; 80053; 84550; 85025

== ENCOUNTER → 2023-11-08 01:57 | Outpatient (CLI) | payer BC, SELFPAY ==
--- NOTE | 2023-11-08 06:49 | DI.MRI_ITS ---
Exam(s) MR UPPER JOINT LT WO EXAM: MR UPPER JOINT LT WO CLINICAL HISTORY: LT rotator cuff tear,AC JOINT SWELLING, H/O INJURY,M75.102. TECHNIQUE: Multiplanar multisequence MRI was performed. COMPARISON: MR MRI - L UPPER JOINT WO CONT from 02/21/2018 CR XR SHOULDER LT COMPLETE 2+V from 09/27/2023 FINDINGS: BONES: There is no fracture or contusion pattern. There is mild marrow edema seen in the inferior asp ect of the glenoid. No fracture is seen. JOINTS: There is marrow edema seen in the distal clavicle and the adjacent acromion. No lucency seen to suggest a fracture. There is fluid seen within the acromioclavicular joint. The joint capsule a ppears distended. The acromioclavicular ligaments appears intact but mildly thickened. The glenohum eral joint is normal. TENDONS: Supraspinatus: There is supraspinatus tendinosis without evidence of a tear. Infraspinatus: No evidence of a tear. Subscapularis: Unremarkable. Teres [place]: Unremarkable. Biceps and [place]: Unremarkable. MUSCLES: Unremarkable. GLENOID LABRUM: There is mild degeneration seen in the superior labrum. SOFT TISSUES: Unremarkable. LIGAMENTS: Please see the above section under joints. There is intermediate signal seen in the withi n the cortical clavicular ligament. There is some irregularity of the fibers laterally. Partial tea r can not be excluded. OTHER: There is a tiny amount of fluid seen in the subacromial subdeltoid bursa. IMPRESSION: 1. Findings suspicious for sprain of the acromioclavicular ligament. 2. Sprain of the coracoclavicular ligament with question of a partial tear laterally. 3. Distention of the acromioclavicular joint with fluid. This may be related to injury. Infection i s considered less likely. 4. Supraspinatus tendinosis. No evidence of a rotator cuff tear. 5. No evidence of a fracture. DATA REPOSITORY:
== END ==
PROVIDERS: PCP Nurse Practitioner Family; Visit Provider Student in an Organized Health Care Education/Training Program
DX: S43.52XA Sprain of left acromioclavicular joint, initial encounter (principal); X58.XXXA Exposure to other specified factors, initial encounter
CPT/HCPCS: 73221

== ENCOUNTER 2024-02-29 11:22 | Outpatient (CLI) | payer BC, SELFPAY ==
--- NOTE | 2024-02-29 11:00 | DI.RAD_ITS ---
Exam(s) XR SHOULDER LT COMPLETE 2+V EXAM: XR SHOULDER LT COMPLETE 2+V CLINICAL HISTORY: F/U AC JOINT SPRAIN. TECHNIQUE: 2D digital imaging was performed. COMPARISON: CR XR SHOULDER LT COMPLETE 2+V from 09/27/2023 FINDINGS: Two views. No evidence of acute fracture nor dislocation or soft tissue calcifications. No obvious degenerative changes in the glenohumeral joint. There is some irregularity of the articular surface of the clavi cular side of the AC joint now evident. Acromial side of the joint appears unchanged. IMPRESSION: Slight changes in the appearance of the AC joint when compared to 09/27/2023. Correlation with any i nterval instrumentation recommended. DATA REPOSITORY: RADIATION DOSE DELIVERED:
== END 2024-02-29 11:23 | disposition home or self-care (01) ==
LOC: DIORS 11:23
PROVIDERS: PCP Nurse Practitioner Family; Referring Provider Nurse Practitioner Family; Visit Provider Student in an Organized Health Care Education/Training Program
DX: M25.512 Pain in left shoulder (principal)
CPT/HCPCS: 73030

== ENCOUNTER 2024-05-31 15:12 | Outpatient (CLI) | payer BC, SELFPAY ==
--- NOTE | 2024-05-31 14:30 | DI.RAD_ITS ---
Exam(s) XR SHOULDER LT 1V EXAM: XR SHOULDER LT 1V CLINICAL HISTORY: LEFT SHOULDER PAIN. TECHNIQUE: 2D digital imaging was performed. Three views. COMPARISON: CR XR SHOULDER LT COMPLETE 2+V from 09/27/2023 CR XR SHOULDER LT COMPLETE 2+V from 02/29/2024 FINDINGS: BONES: No acute fracture is present. No bony destructive lesion is seen. There spurring at the under surface of the acromion. Small degenerative cyst in the greater tuberosity. JOINTS: No dislocation present. Postsurgical widening of the AC joint. Mild degenerative changes of the glenohumeral joint. SOFT TISSUE: Calcifications beneath the distal clavicle likely ligamentous. IMPRESSION: postsurgical and degenerative changes. DATA REPOSITORY: RADIATION DOSE DELIVERED:
== END 2024-05-31 15:13 | disposition home or self-care (01) ==
LOC: DIORS 15:27
PROVIDERS: PCP Nurse Practitioner Family; Visit Provider Student in an Organized Health Care Education/Training Program
DX: Z98.890 Other specified postprocedural states (principal)
CPT/HCPCS: 73020

== ENCOUNTER 2025-02-14 14:53 | Outpatient (CLI) | payer BC, SELFPAY ==
--- NOTE | 2025-02-14 14:30 | DI.RAD_ITS ---
Exam(s) XR SHOULDER LT 1V EXAM: XR SHOULDER LT 1V CLINICAL HISTORY: F/U LEFT SHOULDER PAIN. TECHNIQUE: 2D digital imaging was performed. Single AP view COMPARISON: CR XR SHOULDER LT 1V from 05/31/2024 FINDINGS: BONES: No acute fracture is present. No bony destructive lesion is seen. JOINTS: No dislocation present. Spurring at the AC joint which also shows mild widening. Spurring at the tip of the acromion. Glenohumeral joint is not well profiled. SOFT TISSUE: Calcification again noted between the distal clavicle and coracoid. IMPRESSION: Stable degenerative changes. DATA REPOSITORY: RADIATION DOSE DELIVERED:
== END 2025-02-14 14:54 | disposition home or self-care (01) ==
LOC: DIORS 14:53
PROVIDERS: PCP Nurse Practitioner Family; Visit Provider Student in an Organized Health Care Education/Training Program
DX: S49.92XA Unspecified injury of left shoulder and upper arm, initial encounter (principal)
CPT/HCPCS: 73020